=== PATIENT | female | born 1985 | race Caucasian/White ===

== ENCOUNTER 2020-11-12 17:52 | Emergency (ER) | payer OTHER ==
[~2020-11-12] VITALS: Ht 162.6 cm; Wt 136.1 kg
[~2020-11-12 17:52] MED LIST: IBUPROFEN 600600 M1 PO; NORCO 5-325 TA1 EACH PO; PENICILLIN V P500 MG PO
[2020-11-12 18:45] LABS: URINE BILIRUBIN 1+ (Negative); URINE BLOOD NEGATIVE (Negative); URINE CLARITY CLEAR; URINE COLOR YELLOW; URINE GLUCOSE-RANDOM* NEGATIVE (Negative); URINE KETONES 2+ (Negative); URINE LEUKOCYTES-REFLEX NEGATIVE (Negative); URINE NITRITE-REFLEX NEGATIVE (Negative); URINE PROTEIN (DIPSTICK) TRACE (Negative)
[2020-11-12 18:47] LABS: HEMATOCRIT 37.3 % (37.0-47.0); HEMOGLOBIN 13.3 gm/dL (12.0-15.0); MCH 40.8 pg (26.0-34.0); MCHC 35.5 g/dL (28.0-37.0); MCV 114.9 fL (80.0-100.0); PLATELET COUNT 351 thou/uL (150-400); RBC 3.25 mil/uL (4.20-5.00)
[2020-11-12 18:50] LABS: CALCIUM 9.4 mg/dL (8.5-10.1); CREATININE 0.7 mg/dL (0.6-1.0); POTASSIUM 3.5 mmol/L (3.5-5.1)
[2020-11-12 18:56] LABS: ALBUMIN 3.4 g/dL (3.4-5.0); DIRECT BILIRUBIN 0.2 mg/dL (<0.1-0.2); TOTAL BILIRUBIN 1.2 mg/dL (0.2-1.0); TOTAL PROTEIN 7.9 g/dL (6.4-8.2)
[2020-11-12 19:36] LABS: ABSOLUTE NEUTROPHILS 6.5 thou/uL (1.4-8.2)
[2020-11-12 19:37] LABS: POLYCHROMASIA 1+
[2020-11-12] MEDS ORDERED: PHENERGAN 25 MG25 M1 PO (20:18)
[2020-11-12] MEDS ORDERED: CARAFATE 1 GM TA1 G1 PO (20:23)
[2020-11-12 20:56] VITALS: BP 167/107
== END 2020-11-12 20:57 | disposition home or self-care (01) ==
LOC: ER 17:52
PROVIDERS: Nurse Practitioner
DX: R11.2 Nausea with vomiting, unspecified (principal)